=== PATIENT | male | born 1975 | race Caucasian/White ===

== ENCOUNTER 2016-10-23 13:45 | Emergency (ER) | payer OTHER ==
[~2016-10-23] VITALS: Ht 177.8 cm; Wt 81.8 kg
[2016-10-23 13:50] VITALS: BP 172/115; PULSE 75; RESP 14; O2SAT 98
[2016-10-23] MEDS ORDERED: 0.9% Sodium Chloride 1,000 ML IV ONE (14:01)
--- NOTE | 2016-10-23 14:01 | ED.REPORT ---
HPI-General Illness Date of Service October 23, 2016 ED Provider: Julien Zimmer DO 41 year old male with a history of HTN presents to the ER accompanied by his spouse complaining of an hour of waxing and waning right flank pain. The pain radiates into his abdomen. He also reports three days of hematuria. Associated symptoms of nausea, and vomiting. He denies any fever, penile pain or discharge , and signs of hernia. Patient has not had his blood pressure medications in 2- 3 months given that he is currently between providers. Nursing Notes Stated Complaint: BLOOD IN URINE, BACK PAIN Chief Complaint: Male Abdominal Pain Nursing Notes Reviewed: Yes Allergies: Coded Allergies: codeine (Verified Allergy, Unknown, vomit and sick, 10/23/16) Scheduled Lisinopril / HCTZ 20-25 mg (Lisinopril / HCTZ 20-25 mg) 1 Each Tablet 1 EACH PO DAILY Scheduled PRN Naproxen (Naproxen) 500 Mg Tab 500 MG PO BID PRN PRN For Pain Ondansetron ODT (Zofran ODT) 4 Mg Tablet 4 MG PO Q4H PRN PRN For Nausea Oxycodone (Roxicodone) 5 Mg Tablet 5 MG PO QID PRN PRN For Pain General Time Seen by MD: 14:00 Chief Complaint Other (Right Flank Pain) Hx Obtained From: Patient Arrived By: Walk-in Sudden in Onset?: No Onset Occurred: 1 - 4 hours ago (1) Symptom Duration: Since onset Associated with: Reports: Nausea, Vomiting Additional Notes: Hematuria Pertinent Negative: Pt denies other symptoms Similar Sx Previous: No Past Medical History Past Medical History Reports: Hypertension Smoking History Current Every Day Smoker Social History Alcohol Use: Denies alcohol use Drug Use: Denies drug use Other Social History: Good social support, Ambulatory Status Independent Review of Systems Full Review of Systems Constitutional: Denies: Chills, Fever GI: Reports: Abdominal pain, Nausea, Vomiting, Denies: Constipation, Diarrhea Male: Reports Flank pain, Reports Hematuria, Denies Penile discharge, Denies Penile lesion, Denies Scrotal swelling, Denies Testicular pain, Denies Testicular swelling, Denies Urinary frequency, Denies Urinary urgency Musculoskeletal: Reports: Back pain Complete sys rev & neg: except as marked. Physical Exam Vital Signs Vital Signs Date Time Temp Pulse Resp B/P Pulse Ox O2 Delivery O2 Flow Rate FiO2 5/4/17 15:17 16 162/109 99 Room Air 10/23/16 13:50 35.8 75 14 172/115 98 Room Air Initial VS: Reviewed Head / Eyes: Atraumatic, Normocephalic Neck: Supple, Non-tender, Full range of motion Extremities: Vascular intact, Neuro intact, No swelling, No tenderness Skin: Warm, Dry, No cyanosis Neurologic: Alert, Oriented, Nonfocal General/Constitutional: Awake, Alert, Well appearing, Well developed, Well hydrated, Well nourished, Cooperative Appearance / Presentation: Positive: In pain, Uncomfortable Respiratory / Chest: Breath sounds NL, No respiratory distress, No rales, No rhonchi, No wheezing Cardiovascular: Heart rate NL, Regular rhythm, Heart sounds NL, Cap refill not delayed, Peripheral circulation NL Symmetric DP PT pulses. Abdomen: Soft, Non-tender, No guarding, No rebound, No distention Back: Full range of motion, No midline vertebral tend Right CVA tenderness. Interpretation & Diagnostics Lab Results Interpretation Result Diagram: 10/23/16 1405 10/23/16 1405 Test 10/23/16 14:05 10/23/16 15:00 White Blood Count 9.7th/mm3 (3.8-10.1) Red Blood Count 4.85mil/mm3 (4.40-5.80) Hemoglobin 14.4g/dL (13.8-17.2) Hematocrit 42.1% (41.0-50.0) Mean Corpuscular Volume 86.8fL (81-100) Mean Corpuscular Hemoglobin 29.7pg (27.0-35.0) Mean Corpuscular Hemoglobin Concent 34.2% (32.0-37.0) Red Cell Distribution Width 13.4% (12.3-15.4) Platelet Count 310bil/L (150-400) Neutrophils (%) (Auto) 51.4% (40-74) Lymphocytes (%) (Auto) 33.4% (14-46) Monocytes (%) (Auto) 9.4% (4-12) Eosinophils (%) (Auto) 5.4% (0-5) Basophils (%) (Auto) 0.3% (0-3) Sodium Level 144mEq/L (134-144) Potassium Level 3.9mEq/L (3.5-5.2) Chloride Level 104mEq/L (97-108) Carbon Dioxide Level 25mmol/L (18-29) Blood Urea Nitrogen 19mg/dL (6-24) Creatinine 1.04mg/dL (0.76-1.27) Estimat Glomerular Filtration Rate 84mL/min (>59) Glucose Level 118mg/dL (60-99) Calcium Level 9.4mg/dL (8.5-10.1) Magnesium Level 1.9mg/dL (1.6-2.6) Total Bilirubin 0.4mg/dL (0.0-1.2) Aspartate Amino Transf (AST/SGOT) 22U/L (0-50) Alanine Aminotransferase (ALT/SGPT) 17U/L (0-44) Alkaline Phosphatase 83U/L (25-150) Total Protein 7.1g/dL (6.4-8.4) Albumin 4.7g/dL (3.4-5.0) Lipase 25U/L (13-60) Hold [place] Top Tube Received (Received) Hold Urine Received (Received) CT Abd / Pelvis Interpretation IMPRESSION: Impacted distal right ureteral stone measuring 3 mm, causing mild hydroureter and hydronephrosis on the right the right kidney slightly enlarging when compared to the left kidney. No additional urinary tract stone is found, and no acute disease elsewhere is seen. Dictated by: Chris Farris M.D. on 10/23/2016 at 14:53 Approved by: Chris Farris M.D. on 10/23/2016 at 14:56 Study type: Abdominal CT no contrast Interpretation / Wet Read by: Interpret - Radiologist Re-Eval/Medical Decision Med Decision/Clinical Course Findings the right-sided kidney stone that fits with the clinical presentation and I doubt other diagnoses such as aortic dissection. Patient's blood pressure medicine will be refilled, for pain and nausea control he received Zofran, naproxen, oxycodone. Return and follow-up precautions given. Time of Eval: 15:15 Re-Evaluation/Progress Note: Discussed lab and CT results and plan to discharge. Patient is amenable to the plan. Return precautions given. All other questions addressed. Counseled Regarding: Diagnosis, Lab results, Need for follow-up, When/why to return to ED Discharge & Departure Primary Impression: Ureteral stone with hydronephrosis Disposition: Home Discharge Condition All VS Reviewed: Yes Condition: Stable Patient Instructions: Nephrolithiasis (DC) Additional Instructions: Your CT indicates that you have a impacted distal right ureteral stone measuring 3 mm. Drink plenty of fluids. Take Zofran once every hour as needed for nausea. Take Naproxen as prescribed for pain. Take the oxycodone as prescribed or severe pain. Do not drive or consume alcohol while taking oxycodone. Take your blood pressure pill as prescribed. Follow-up with the urologist at the number provided. Return to the ER if you develop uncontrollable pain, fever, chills, or any other worsening or concerning symptoms. Referrals: Joseline Melo MD Attestation Portions of this note were transcribed by Aldo Mosley. I, Dr. Zimmer, personally performed the history, physical exam and medical decision-making; I reviewed and confirmed the accuracy of the information in the transcribed note. Signed by: Deepali Crowley, 10/23/2016 and 15:22 copies to: Joseline Melo MD, Timothy S DO October 23, 2016 14:00 ALDO MOSLEY October 23, 2016 14:09
[2016-10-23] MEDS ORDERED: Ondansetron 2 mg/mL 2 mL Inj IVPUSH PRN (14:05)
[2016-10-23 14:18] LABS: BASOPHILS % (AUTO) 0.3 % (0-3); EOSINOPHILS % (AUTO) 5.4 % (0-5); MONOCYTES % (AUTO) 9.4 % (4-12); Mean Corpuscular Hemoglobin 29.7 pg (27.0-35.0); Mean Corpuscular Volume 86.8 fL (81-100); NEUTROPHILS % (AUTO) 51.4 % (40-74); Platelet Count 310 bil/L (150-400)
[2016-10-23 14:49] LABS: Magnesium 1.9 mg/dL (1.6-2.6)
--- NOTE | 2016-10-23 14:58 | DRSVH ---
PROCEDURE: CT KUB ([id number]) INDICATIONS: flank pain TECHNIQUE: Noncontrast 5 mm thick sections acquired from the diaphragms to the symphysis. 5 mm thick coronal an d sagittal reformats were then performed. For radiation dose reduction, the following was used: aut omated exposure control, adjustment of mA and/or kV according to patient size. COMPARISON: None. FINDINGS: Image quality: Excellent. Lung bases: Lung bases are clear. Heart size is normal. Urinary system: The kidneys are asymmetric in size, mildly larger on the right than the left with ass ociated mild right hydronephrosis and mild perinephric edema. No left-sided kidney stones. No left- sided hydronephrosis or perinephric fat stranding. The left ureter appears non-dilated throughout it s expected course, but the right ureter is mildly dilated to the bladder level where an impacted calc ulus at the posterior bladder margin is present measuring only approximately 3 mm in maximal dimensio n. Bladder wall thickness is normal; no calcified bladder stones. Other solid organs: Liver and spleen are normal in size. Gallbladder appears normal. Pancreas is n ormal in contours. No adrenal nodules. Peritoneum and bowel: Unenhanced bowel loops demonstrate normal wall thickness and caliber. No free fluid or air. Nodes and vessels: No retroperitoneal or mesenteric adenopathy by size criteria. Aorta and inferior vena cava are normal in caliber. Abdominal wall: No ventral hernias. Pelvis: No free pelvic fluid. No inguinal hernias or adenopathy. Bones: No suspicious bony lesions. No vertebral body compression fractures. IMPRESSION: Impacted distal right ureteral stone measuring 3 mm, causing mild hydroureter and hydrone phrosis on the right the right kidney slightly enlarging when compared to the left kidney. No additi onal urinary tract stone is found, and no acute disease elsewhere is seen. Dictated by: Chris Farris M.D. on 10/23/2016 at 14:53 Approved by: Chris Farris M.D. on 10/23/2016 at 14:56
[2016-10-23] MEDS ORDERED: Promethazine Inj 25 MG in 0.9% Sodium Chloride-Pha MIX 100 ML IV ONE (15:15)
[2016-10-23 15:17] VITALS: BP 162/109; RESP 16; O2SAT 99
[2016-10-23] MEDS ORDERED: LISI1TAB11 PO (15:20)
[2016-10-23] MEDS ORDERED: OXYC-474 PO (15:20)
[2016-10-23] MEDS ORDERED: HYDROmorphone 1 mg/mL Inj IVPUSH PRN (15:20)
[2016-10-23] MEDS ORDERED: NPR500T PO (15:20)
[2016-10-23] MEDS ORDERED: ONDA4TAB9 PO (15:20)
[2016-10-23] MEDS ORDERED: Promethazine Inj 25 MG in 0.9% Sodium Chloride 50 ML IV ONE (15:27)
[2016-10-23 16:40] VITALS: BP 138/87; PULSE 67; RESP 15; O2SAT 94
[2016-10-23 16:41] VITALS: BP 138/87; PULSE 67; RESP 16; O2SAT 94
== END 2016-10-23 16:55 | disposition home or self-care (01) ==
LOC: SED 13:45
DX: N13.2 Hydronephrosis with renal and ureteral calculous obstruction (principal); I10 Essential (primary) hypertension; F17.200 Nicotine dependence, unspecified, uncomplicated; Z88.5 Allergy status to narcotic agent
CPT/HCPCS: 36415; 74176; 80053; 83690; 83735; 85025; 96361; 96374; 96375; 99285; J1170; J1885; J2405; J2550; J7030